=== PATIENT | male | born 1940 | race Caucasian/White ===

== ENCOUNTER 2018-06-12 09:54 | Emergency (ER) | payer MEDICARE ==
[~2018-06-12] VITALS: Ht 175.3 cm; Wt 72.6 kg
[2018-06-12] MEDS ORDERED: LEVO100T5 PO (10:24)
[2018-06-12] MEDS ORDERED: CLOP75TA52 PO (10:24)
[2018-06-12 10:42] LABS: BASOPHILS # (AUTO) 0.02 x10^3/uL (0-0.1); BASOPHILS % (AUTO) 0 % (0-1); EOSINOPHILS # (AUTO) 0.14 x10^3/uL (0-0.4); EOSINOPHILS % (AUTO) 2 % (1-7); LYMPHOCYTES # (AUTO) 0.96 x10^3/uL (1-3.4); LYMPHOCYTES % (AUTO) 15 % (22-44); MD NO; MEAN CORPUSCULAR HGB CONC 34.1 g/dL (33.2-36.2); MEAN CORPUSCULAR VOLUME 96.7 fL (81-97); MEAN PLATELET VOLUME 7.8 fL (7.4-10.4); MONOCYTES # (AUTO) 0.56 x10^3/uL (0.2-0.8); MONOCYTES % (AUTO) 9 % (2-9); NEUTROPHILS # (AUTO) 4.77 x10^3/uL (1.8-6.8); NEUTROPHILS % (AUTO) 74 % (42-75); PLATELET COUNT 201 x10^3/uL (130-400); RED BLOOD COUNT 4.67 x10^6/uL (4.38-5.82); RED CELL DISTRIBUTION WIDTH 15.6 % (9.4-14.8)
[2018-06-12 10:53] LABS: ALANINE AMINOTRANSFERASE 27 U/L (12-78); ANION GAP 3 mmol/L (5-15); CALCIUM 8.5 mg/dL (8.5-10.1); CHLORIDE 110 mmol/L (98-107); CREATININE 0.93 mg/dL (0.7-1.3)
[2018-06-12 10:57] LABS: ALKALINE PHOSPHATASE 48 U/L (45-117); BILIRUBIN,TOTAL 0.6 mg/dL (0.2-1.0); TOTAL PROTEIN 7.5 g/dL (6.4-8.2); TROPONIN I < 0.015 ng/mL (0.000-0.045)
[2018-06-12 11:05] LABS: INTERNATIONAL NORMALIZED RATIO 0.98 (0.93-1.1); PROTHROMBIN TIME 10.3 Seconds (9.6-11.5)
--- NOTE | 2018-06-12 11:35 | NUR ---
LATE NOTE ENTRY FOR 951: Pt brought in by EMS for c/o increased weakness and nausea today. Pt recieved chelation therapy yesterday. NADN. Pt resting on gurney connected to NIBP, continous pulse ox, and manager monitoring. Bedrails up on both sides for safety measures. Call light within reach. No needs expressed at this time. Pt has PIV established by EMS prior to arrival. Pt denies SOB, CP, N/V/D, SYNCOPE, OR TRAUMA.
--- NOTE | 2018-06-12 11:36 | NUR ---
Provided pt warm blankets per request. NADN. No other needs expressed. Call lgt within reach.
--- NOTE | 2018-06-12 12:36 | NUR ---
pt walked in burns pulse ox stayed between 90-93, steady gait
--- NOTE | 2018-06-12 13:14 | NUR ---
Patient given discharge instructions and they have confirmed that they understand the instructions. Patient ambulatory with steady gait. Pt stated verbal understanding of patient education. PIV 18g in right AC removed with tip intact and PIV site asymptomatic of infiltration, phelbitis, or infection. Pt left with all personal belongings and d/c paperwork.
[2018-06-12 13:15] VITALS: BP 143/80
== END 2018-06-12 13:21 ==
LOC: ED 12:37
DX: R55 Syncope and collapse (principal); R53.1 Weakness; I25.2 Old myocardial infarction; E03.9 Hypothyroidism, unspecified; E78.5 Hyperlipidemia, unspecified
CPT/HCPCS: 36415; 71045; 80053; 83735; 84484; 85025; 85610; 85730; 93005; 99284